=== PATIENT | female | born 1980 | race Caucasian/White ===

== ENCOUNTER 2016-09-26 21:09 | Emergency (ER) | payer BC ==
--- NOTE | 2016-09-26 23:01 | ED NURSING NOTES ---
Clinical Report - Nurses [facility] [address] [place] [address] 09/26/2016 21:11 Patient: SHANE RICHARD TRIAGE Triage time 2110. Acuity: LEVEL 3. Chief Complaint: CHEST PAIN and (off and on sharp pains under left breast over last 2 days--denies worsening pain with position, breathing or palp). --21:18 Luz Maria Larsen R.N. 21:13 09/26/16. HR: 87. RR: 20. O2 saturation: 98%. Temp: 97.9 F. Pain level now 0/10. --21:18 Luz Maria Larsen R.N. 21:13 09/26/16. BP: 126/72. --21:24 Luz Maria Larsen R.N. Weight: 147.8 kg stated. Height/Length: 68.5 inches Per Patient. BMI: 48.9. --21:13 Luz Maria Larsen R.N. Medications HCG injections weekly for weightloss . --21:15 Luz Maria Larsen R.N. Thyroid supliment 1tab a day . --21:15 Luz Maria Larsen R.N. Allergies Codeine. --21:14 Luz Maria Larsen R.N. History Arrived by private vehicle. Historian: patient. Accompanied by mother. Primary physician ([facility] in [place]). This started yesterday. No difficulty breathing, sweating episodes, nausea, fever or cough. PAST MEDICAL HX: Immunizations: up-to-date. Last normal menstrual period- 2 weeks. ( asthma, seasonal allergies). SURGERY HX: No history of previous surgery. SOCIAL HX: Never smoker. Occasional alcohol use. No drug use. --21:18 Luz Maria Larsen R.N. Interventions ID band on patient. To treatment room. --21:18 Luz Maria Larsen R.N. PHYSICAL ASSESSMENT 21:19. Ambulatory to room. Patient gowned. GENERAL / NEURO / PSYCH: Alert. Oriented X 4. Appears in no acute distress. Appears anxious. RESPIRATORY: Respirations not labored. Chest wall tenderness. CVS: Pulses within normal limits. Capillary refill less than 2 seconds. GI / : Abdomen soft. EXTREMITIES: No lower extremity edema. SKIN: Skin is warm and dry. --21:20 Luz Maria Larsen R.N. NURSING PROGRESS NOTES 21:10. visual merchandising manager placed on patient. Patient gowned. Head of bed elevated. Patient identifiers checked. Call light placed in reach. Side rails up. Bed placed in lowest position. Patient ready for evaluation- chart flagged. --21:19 Luz Maria Larsen R.N. 21:19. EKG time: (2118). EKG was ordered, performed by a tech and shown to the ED physician. done by GOLD Keys. --21:19 Luz Maria Larsen R.N. 21:22 09/26/2016 Site #1 started via IV in the left antecubital space with an 20g angiocath, with aseptic technique and good blood return; one attempt. Blood drawn: rainbow set. Labeled in the presence of the patient. Saline lock flushed with 10 mL saline (by Fauzia MALCOLM). --21:22 Luz Maria Larsen R.N. 21:23 09/26/16. ( IV start and blood to lab). --21:23 Luz Maria Larsen R.N. 21:30. Patient walked to radiology with tech. --21:36 Luz Maria Larsen R.N. 21:39 09/26/16. Patient walked back to ED from radiology with tech. --21:39 Luz Maria Larsen R.N. 21:40 09/26/16. BP: 125/61. HR: 84. RR: 19. O2 saturation: 98%. Temp: deferred. Pain level now: 0/10. Additional comments: resting quietly, talking with mom, denies pain, declined blanket . --21:55 Luz Maria Larsen R.N. 22:05 09/26/16. BP: 116/68. HR: 82. RR: 18. O2 saturation: 100%. Temp: deferred. Pain level now: 0/10. --22:07 Luz Maria Larsen R.N. 22:10. Care transferred and report received. --22:10 Philip Arzola R.N. 23:15. The patient is calm and resting quietly. Overall patient status is improved- she states feels better. RESPIRATORY: No respiratory distress. SKIN: Skin is warm and dry. Skin color within normal limits. --23:18 Philip Arzola R.N. DISPOSITION / DISCHARGE Departure time: 23:17. Condition at departure: improved and stable. No learning barriers present. Discharge instructions provided and reviewed with the patient and parent. Patient and parent verbalized understanding. Written instructions provided in [place]. The patient was discharged home and accompanied by parent. She left the Emergency Department ambulatory and via private vehicle. Parent driving. FALL RISK ASSESSMENT: Fall risk assessment completed. No fall risk identified. --23:18 Philip Arzola R.N. 23:12 09/26/16. BP: 132/79. HR: 78. RR: 7. O2 saturation: 98%. Pain level now: 0/10. --23:18 Philip Arzola R.N. 23:14 09/26/2016 Site #1 removed upon discharge. Catheter intact. Bandage applied. --23:18 Philip Arzola R.N. Locked/Released at 09/26/2016 23:18 by Philip Arzola R.N.
--- NOTE | 2016-09-26 23:01 | ED ORDER SUMMARY ---
..... Patient: SHANE RICHARD OrderSheet [facility] VisitID: [id number] [address] [place] [address] 36y, F Registration Date/Time: 09/26/2016 ORDER SHEET Weight: 147.8 kg (stated) Allergies: Codeine GENERAL ORDERS: Chest 2V Urgent (21:28 09/26/2016 HBivens A.R.N.P.) (Ack 21:33 [facility]) (21:39 DDean R.N.) MEDICATION ORDERS: IV FLUIDS: IV Saline Lock (21:22 09/26/2016 DDean R.N. per protocol) (21:22 DDean R.N.) ORDER SHEET NOTES: [Electronically signed by Nicki LandryRDanielN.P. (23:10 09/26/2016)] [Electronically signed by Philip Arzola R.N. (23:18 09/26/2016)] [Electronically locked/signed by Philip Arzola R.N. (23:18 09/26/2016)]
--- NOTE | 2016-09-26 23:01 | ED ORDER SUMMARY ---
..... Patient: SHANE RICHARD OrderSheet [facility] VisitID: [id number] [address] [place] [address] 36y, F Registration Date/Time: 09/26/2016 ORDER SHEET Weight: 147.8 kg (stated) Allergies: Codeine GENERAL ORDERS: Chest 2V Urgent (21:28 09/26/2016 HBivens A.R.N.P.) (Ack 21:33 Yael [facility] [employer]) (21:39 DDean R.N.) MEDICATION ORDERS: IV FLUIDS: IV Saline Lock (21:22 09/26/2016 DDean R.N. per protocol) (21:22 DDean R.N.) ORDER SHEET NOTES: [Electronically signed by Nicki LandryRDanielN.P. (23:10 09/26/2016)] [Electronically signed by Philip Arzola R.N. (23:18 09/26/2016)] [Electronically locked/signed by Philip Arzola R.N. (23:18 09/26/2016)]
--- NOTE | 2016-09-26 23:01 | ED CLINICAL REPORT ---
Clinical Report - Physicians/Mid Levels [facility] [address] [place] [address] 09/26/2016 21:11 Patient: SHANE RICHARD Time Seen: 21:20; initial patient contact, initial documentation, patient care assumed. Arrived- By private vehicle. Historian- patient. HISTORY OF PRESENT ILLNESS Chief Complaint: CHEST PAIN and DISCOMFORT. This started yesterday and is now gone. It was abrupt in onset and has been intermittent (lasting 30 - 40 seconds). Onset during comes on random. At its maximum, severity described as moderate. When seen in the E.D., it was gone. Modifying factors. Not worsened by anything. Not relieved by anything. It is described as sharp and "pain" and it is described as located in the left chest area. No radiation. No nausea, vomiting, difficulty breathing or diaphoresis. No additional chest pain. Similar symptoms previously: None. Recent medical care: Not recently seen/assessed. REVIEW OF SYSTEMS All systems otherwise negative, except as recorded above. PAST HISTORY Negative. SOCIAL HISTORY Never smoker. Occasional alcohol use. No drug use. No recent travel. Is a local resident. FAMILY HISTORY History of heart disease in first-degree relative (father) (father has a-fib, no mi). ADDITIONAL NOTES The nursing notes have been reviewed with agreement regarding the chief complaint, HPI, ROS, PMH and patient medications and allergies. PHYSICAL EXAM Vital Signs: 09/26/2016 21:13 BP: 126/72. HR: 87. RR: 20. O2 saturation: 98%. Temp: 97.9 F. Have been reviewed as normal and appear to be correct. Appearance: Alert. Oriented X3. No acute distress. Eyes: Pupils equal, round and reactive to light. Eyes normal inspection. Neck: Normal inspection. Neck supple. CVS: Normal heart rate and rhythm. Heart sounds normal. Pulses normal. Respiratory: No respiratory distress. Breath sounds normal. Chest nontender. Abdomen: Severely obese. Back: Normal external inspection. Skin: Skin warm and dry. Normal skin color. No rash. Normal skin turgor. Extremities: Extremities exhibit normal ROM. No lower extremity edema. Neuro: Oriented X 3. No motor deficit. No sensory deficit. LABS, X-RAYS, AND EKG EKG: EKG time: (2118). No acute process. No acute ischemia. Normal EKG. Rate: 80. Normal EKG. The study has been interpreted contemporaneously by me (and Dr Aponte). The EKG appears to be a good tracing. Interpretation time: 2121. Chest X-ray: Normal Chest X-Ray. (and dr mata). The X-rays were independently viewed by me. PROGRESS AND PROCEDURES Course of Care: 09/26/2016 22:05 BP: 116/68. HR: 82. RR: 18. O2 saturation: 100%. Pain level now: 0/10. Vital Signs: have been reviewed as normal and appear to be correct. Patient and mother counseled in person regarding the patient's stable condition, test results and diagnosis. Differential Diagnosis: I considered muscle strain, costochondritis, myositis, pleurisy, myocardial infarction, intermediate coronary syndrome, unstable angina, angina, aortic dissection, mitral valve prolapse, pericarditis, pulmonary embolism, pneumonia, pneumothorax, lung cancer, gastroesophageal reflux disease, esophagitis and esophageal spasm as a possible cause of chest pain in this patient. Above considerations are based on history, physical exam, reassessment, X-Ray data and EKG. Differential diagnosis was discussed with patient and patient's mother. Disposition: Discharged home in good and unchanged condition (23:01). Condition: good and stable. CLINICAL IMPRESSION Chest wall pain INSTRUCTIONS Warnings: GENERAL WARNINGS: Return or contact your physician immediately if your condition worsens or changes unexpectedly, if not improving as expected, or if other problems arise. SPECIFICALLY, return if you develop chest, neck, jaw, shoulder, arm, or back pain, difficulty breathing, a fluttering sensation in your chest, lightheadedness, fainting, excessive fatigue, or sudden sweating. Follow-up: Follow up with your doctor in about two days even if well. Call for an appointment. Summary of care provided to patient. Understanding of the discharge instructions verbalized by patient. (Electronically signed by Nicki Landry A.R.N.P. 09/26/2016 23:10)
--- NOTE | 2016-09-26 23:14 | DIAGNOSTIC IMAGING REPORT ---
PROCEDURE: XR CHEST 2 VIEW INDICATION: CHEST PAIN TECHNIQUE: Two views. COMPARISON: None. FINDINGS: Low lung volumes. The cardiomediastinal contour and central vasculature are within normal limits. The lungs are clear without focal consolidation, pleural effusion, or pneumothorax. The visualized osseous structures are intact. IMPRESSION: 1. Given low lung volumes, no acute disease.
--- NOTE | 2016-09-26 23:19 | ED MED RECONCILIATION SUMMARY ---
Patient: SHANE RICHARD Medication Reconciliation Report [facility] VisitID: [id number] [address] [place] [address] 36y, F Registration Date/Time: 09/26/2016 Weight: 147.8 kg Height/Length: (not available) BMI: 48.9 ALLERGIES: Codeine The patient's Home Medications are listed below: THE FOLLOWING MEDICATIONS NEED TO BE RECONCILED: HCG injections weekly for weightloss Thyroid supliment 1tab a day The source(s) of the original Home Medication information: Not obtained. The following Medications were given to the patient in the Emergency Department: None. The following Medications were prescribed to the patient: None.
--- NOTE | 2016-09-26 23:19 | ED MAR SUMMARY ---
..... Medication Administration Record [facility] [address] [place], [place] [id number] Patient: SHANE RICHARD Visit ID: [id number] 36y, F Weight: 147.8 kg Height/Length: 68.5 in BMI: 48.9 ALLERGIES: Codeine
--- NOTE | 2016-09-26 23:19 | ED MAR SUMMARY ---
..... Medication Administration Record [facility] [address] [place], [place] [id number] Patient: SHANE RICHARD Visit ID: [id number] 36y, F Weight: 147.8 kg Height/Length: 68.5 in BMI: 48.9 ALLERGIES: Codeine
--- NOTE | 2016-09-26 23:19 | ED DISCHARGE INSTRUCTIONS ---
Patient: SHANE RICHARD General Instructions [facility] VisitID: [id number] [place] [address] 36y, F Registration Date/Time: 09/26/2016 Chest wall pain INSTRUCTIONS Warnings: GENERAL WARNINGS: Return or contact your physician immediately if your condition worsens or changes unexpectedly, if not improving as expected, or if other problems arise. SPECIFICALLY, return if you develop chest, neck, jaw, shoulder, arm, or back pain, difficulty breathing, a fluttering sensation in your chest, lightheadedness, fainting, excessive fatigue, or sudden sweating. Follow-up: Follow up with your doctor in about two days even if well. Call for an appointment. Summary of care provided to patient. Understanding of the discharge instructions verbalized by patient. ADDITIONAL INFORMATION Chest Wall Pain: Costochondritis The chest pain that you have had today is caused by Costochondritis. This condition is due to an inflammation of the cartilage joining the ribs to the breastbone. It is not caused by heart or lung problems. Although the exact cause for costochondritis is not known, it often occurs during times of emotional stress. It can be painful, but it is not dangerous. It usually disappears within one to two weeks, but may recur. Rarely, a more serious condition may cause symptoms similar to costochondritis; therefore, watch for the warning signs listed below. Home Care: If you feel that emotional stress is a cause of your condition, try to identify sources of that stress. It may not be obvious! Learn ways to deal with the stress in your life such as regular exercise, muscle relaxation, meditation, or simply taking time out for yourself. For more information about this, consult your doctor or go to a local bookstore and review books and tapes available on the subject of stress reduction. You may use acetaminophen (Tylenol) or ibuprofen (Motrin, Advil) to control pain, unless another pain medicine was prescribed. [ NOTE: If you have liver disease or ever had a stomach ulcer, talk with your doctor before using these medicines.] The use of heat (hot wet compress or heating pad) with or without local analgesic creams (Deep Heat Rub, Anthony Wilder) will be helpful to reduce pain. Follow Up with your doctor as directed or sooner if you do not start to improve within the next two days. Get Prompt Medical Attention if any of the following occur: A change in the type of pain: if it feels different, becomes more severe, lasts longer, or spreads into your shoulder, arm, neck, jaw or back Shortness of breath or increased pain with breathing Weakness, dizziness, or fainting Cough with dark colored sputum (phlegm) or blood Abdominal pain Dark red or black stools Fever of 100.4F (38C) or higher, or as directed by your healthcare provider You have been given the following additional information: Chest Wall Pain, Costochondritis (Electronically signed by Nicki Landry A.R.N.P. 09/26/2016 23:10)
--- NOTE | 2016-09-26 23:19 | ED MED RECONCILIATION SUMMARY ---
Patient: SHANE RICHARD Medication Reconciliation Report [facility] VisitID: [id number] [address] [place] [address] 36y, F Registration Date/Time: 09/26/2016 Weight: 147.8 kg Height/Length: (not available) BMI: 48.9 ALLERGIES: Codeine The patient's Home Medications are listed below: THE FOLLOWING MEDICATIONS NEED TO BE RECONCILED: HCG injections weekly for weightloss Thyroid supliment 1tab a day The source(s) of the original Home Medication information: Not obtained. The following Medications were given to the patient in the Emergency Department: None. The following Medications were prescribed to the patient: None.
== END 2016-09-26 23:17 | disposition home or self-care (01) ==
LOC: ED SRH 21:09
DX: R07.89 Other chest pain (principal)